=== PATIENT | male | born 1980 | race Two or more races ===

== ENCOUNTER 2024-04-25 11:45 | Emergency (ER) | payer OTHER ==
[~2024-04-25] VITALS: Ht 175.3 cm; Wt 102.1 kg
[2024-04-25] MEDS ORDERED: AVAPRO300 MG (12:06)
[2024-04-25] MEDS ORDERED: NIFEDIPINE20 MG (12:06)
[2024-04-25] MEDS ORDERED: KETOROLAC TROMETHAMINE 60 MG VIAL IM ONE (12:45)
[2024-04-25] MEDS ORDERED: TRIAMCINOLONE ACETONIDE 40 MG/ML VIAL IM ONE (12:45)
[2024-04-25] MEDS ORDERED: DICLOFENAC SODI75 MG PO (13:10)
[2024-04-25] MEDS ORDERED: NORFLEX100MG PO (13:10)
== END 2024-04-25 13:15 | disposition home or self-care (01) ==
LOC: ER 11:47
DX: M54.9 Dorsalgia, unspecified (principal)